=== PATIENT | female | born 1975 | race Caucasian/White ===

== ENCOUNTER 2018-03-10 06:11 | Emergency (ER) | payer OTHER ==
[2018-03-10 06:21] VITALS: BP 141/105
[2018-03-10] MEDS ORDERED: DEXAMETHASONE 4 MG TAB PO ONE (06:40)
--- NOTE | 2018-03-10 06:40 | EDPHY ---
H & P Stated Complaint: sore thoat X 4 days, Dx with Strep 4 days ago, finished ABX Time Seen by Provider: 03/10/18 06:31 HPI/ROS: Chief Complaint: Sore throat, fever HPI: 42-year-old woman presenting with 4 days of fever, sore throat. Patient was seen at urgent care and diagnosed with strep. Patient is penicillin allergic and was started on azithromycin she states for the last 3 days. Symptoms are not improving. She has pain with swallowing. Subjective fevers, ear pain, congestion, nonproductive cough. She has been taking ibuprofen with acetaminophen with little relief. She is here to work trip from [place]. No nausea or vomiting. She is able to swallow. ROS: 10 systems were reviewed and were negative except those elements noted in the HPI. PMH: Denies Social History: No smoking, no alcohol, no recreational drug use Family History: non-contributory Physical Exam: Gen: Awake, Alert, No Distress HEENT: Nose: no rhinorrhea Eyes: PERRLA, EOMI Mouth: Moist mucosa mild generalized erythema, occasional punctate exudate , uvula is midline, no peritonsillar swelling or abscess, no submandibular stay tenderness or swelling Neck: Supple, no JVD, no lymphadenopathy, no swelling, no masses Chest: nontender, lungs clear to auscultation Heart: S1, S2 normal, no murmur Abd: Soft, non-tender, no guarding Back: no CVA tenderness, no midline tenderness Ext: no edema, non-tender Skin: no rash Neuro: CN II-XII intact, Sensation grossly intact, Strength 5/5 in bilateral upper and lower extremities - Personal History LMP (Females 10-55): 15-21 Days Ago Current Tetanus/Diphtheria Vaccine: Yes Current Tetanus Diphtheria and Acellular Pertussis (TDAP): Yes - Medical/Surgical History Hx Asthma: No Hx Chronic Respiratory Disease: No Hx Diabetes: No Hx Cardiac Disease: No Hx Renal Disease: No Hx Cirrhosis: No Hx Alcoholism: No Hx HIV/AIDS: No Hx Splenectomy or Spleen Trauma: No Other PMH: anxiety - Social History Smoking Status: Never smoked Constitutional: Initial Vital Signs Temperature (C) 36.7 C 03/10/18 06:18 Heart Rate 73 03/10/18 06:18 Respiratory Rate 18 03/10/18 06:18 Blood Pressure 141/105 H 03/10/18 06:18 O2 Sat (%) 95 03/10/18 06:18 O2 Delivery Mode Room Air Allergies/Adverse Reactions: Penicillins Allergy (Verified 03/10/18 06:17) Home Medications: Medication Instructions Recorded Xanax 03/10/18 buPROPion 03/10/18 Medical Decision Making ED Course/Re-evaluation: 42-year-old with persistent pharyngitis despite antibiotics. She reports she had a positive strep test at urgent care. Will switch her to clindamycin. Oral Decadron here, follow up with primary care physician. Departure - Departure Disposition: Home, Routine, Self-Care Clinical Impression: Acute pharyngitis Condition: Good Instructions: Pharyngitis (ED) Additional Instructions: Take ibuprofen, 600 mg every 8 hr. You may alternate with acetaminophen, 1000 mg every 8 hr. Please take your full course of antibiotics. Follow up with primary care physician in 3-4 days for further evaluation. Return to the emergency department for worsening pain, difficulty swallowing, difficulty breathing, uncontrolled fevers or chills, or any other concerns. Referrals: NONE *PRIMARY CARE P,. [Primary Care Provider] - As per Instructions
== END 2018-03-10 06:58 | disposition home or self-care (01) ==
DX: J02.0 Streptococcal pharyngitis (principal); F41.9 Anxiety disorder, unspecified